=== PATIENT | female | born 1960 | race Caucasian/White ===

== ENCOUNTER 2024-04-30 10:14 | Emergency (ER) | payer MEDICARE, OTHER ==
[~2024-04-30] VITALS: Ht 149.9 cm; Wt 74.8 kg
[2024-04-30] MEDS ORDERED: CELEBREX200 MG PO (10:43)
[2024-04-30] MEDS ORDERED: TRAZODONE HCL50 MG PO (10:43)
[2024-04-30] MEDS ORDERED: CELEXA40 MG PO (10:43)
[2024-04-30] MEDS ORDERED: FLOMAX0.4 MG PO (10:44)
[2024-04-30] MEDS ORDERED: ACYCLOVIR400 MG (10:44)
[2024-04-30] MEDS ORDERED: HYDRALAZINE HCL25 MG PO (10:44)
[2024-04-30] MEDS ORDERED: CALCIUM500 M1 PO (10:45)
[2024-04-30] MEDS ORDERED: K-TAB ER20 MEQ (10:45)
[2024-04-30] MEDS ORDERED: KETOROLAC TROMETHAMINE 30 MG/ML VIAL IM ONE (11:15)
[2024-04-30] MEDS ORDERED: GABAPENTIN 300 MG CAP PO ONE (11:15)
[2024-04-30] MEDS ORDERED: HYDROCODONE/ACETA 7.5/325 TAB PO ONE (11:15)
[2024-04-30] MEDS ORDERED: LIDOCAINE HCL 4% 1 EACH PATCH TD ONE (12:30)
[2024-04-30] MEDS ORDERED: NEURONTIN300 MG PO (12:31)
[2024-04-30 12:50] VITALS: BP 134/60
== END 2024-04-30 12:50 | disposition home or self-care (01) ==
LOC: ED 10:14
DX: M25.551 Pain in right hip (principal); Z88.2 Allergy status to sulfonamides; Z79.899 Other long term (current) drug therapy
CPT/HCPCS: 73502; 96372; 99283; A9270; J1885